=== PATIENT | female | born 1985 | race American Indian/Alaskan Native ===

== ENCOUNTER 2016-11-30 22:14 | Emergency (ER) | payer SELFPAY ==
[2016-11-30 23:26] LABS: Basophils % (Auto) 0.4 % (0.0-1.8); Eosinophils % (Auto) 0.2 % (0.0-4.3); Hematocrit 39.3 % (30.3-42.9); Hemoglobin 12.8 gm/dl (10.1-14.3); Mean Corpuscular HGB Conc 33 % (30-34); Mean Corpuscular Hemoglobin 28 pg (28-32); Mean Corpuscular Volume 85 fl (79-97); Platelet Count 205 K/mm3 (140-440); Red Blood Count 4.62 M/mm3 (3.65-5.03); Red Cell Distribution Width 13.5 % (13.2-15.2); White Blood Count 7.6 K/mm3 (4.5-11.0)
[2016-11-30 23:46] LABS: Anion Gap 16 mmol/L; BUN/Creatinine Ratio 12.22; Blood Urea Nitrogen 11 mg/dL (7-17); Calcium 8.8 mg/dL (8.4-10.2); Carbon Dioxide 24 mmol/L (22-30); Chloride 100.3 mmol/L (98-107); Glucose 121 mg/dL (65-100); Potassium 3.5 mmol/L (3.6-5.0); Sodium 137 mmol/L (137-145)
--- NOTE | 2016-12-01 00:38 | XRay Report ---
FINAL REPORT EXAM: XR CHEST ROUTINE 2V HISTORY: cough x 3 wks, preg test pend, send for report COMPARISON: None available. FINDINGS:: Frontal and lateral views of the chest obtained. Cardiac silhouette is within normal limits. No focal consolidation or effusion. No pneumothorax. Visualized bony thorax is grossly intact. Mild anterior eventration right hemidiaphragm. IMPRESSION:: No acute findings.
--- NOTE | 2016-12-01 03:39 | Emergency Department Report ---
- General Chief Complaint: Upper Respiratory Infection Stated Complaint: FLU SX Source: patient Mode of arrival: Ambulatory Limitations: No Limitations - History of Present Illness Initial Comments: 31-year-old female no past medical history presents with complaint of 3 weeks of cough slightly productive bodyaches intermittent fevers and chills. Patient states she has had mild chest pain secondary to cough. She denies any history of DVT or PE not on control MD Complaint: fever, cough, rhinorrhea - Related Data Previous Rx's Medication Instructions Recorded Last Taken Type ALBUTEROL Inhaler [ProAir HFA 1 puff IH Q4H PRN #1 inha 12/01/16 Unknown Rx Inhaler] Clarithromycin [Biaxin] 250 mg PO Q12H #14 tablet 12/01/16 Unknown Rx Famotidine [Pepcid] 20 mg PO BID #30 tablet 12/01/16 Unknown Rx Loratadine [Claritin] 10 mg PO DAILY #30 tablet 12/01/16 Unknown Rx Naproxen [Naprosyn TAB] 500 mg PO BID PRN #30 tablet 12/01/16 Unknown Rx Phenylephrine/Dm/Acetaminop/GG 266 ml PO Q4H PRN #1 liquid 12/01/16 Unknown Rx [Mucinex Aoqe-Gnx-Yhbcvrzuzz Lq] Allergies Allergy/AdvReac Type Severity Reaction Status Date / Time No Known Allergies Allergy Verified 11/30/16 22:50 ED Review of Systems ROS: Stated complaint: FLU SX Other details as noted in HPI Constitutional: malaise. denies: chills, fever Eyes: denies: eye pain, eye discharge, vision change ENT: denies: ear pain, throat pain Respiratory: cough. denies: shortness of breath, wheezing Cardiovascular: denies: chest pain, palpitations Endocrine: no symptoms reported Gastrointestinal: denies: abdominal pain, nausea, diarrhea Genitourinary: denies: urgency, dysuria, discharge Musculoskeletal: denies: back pain, joint swelling, arthralgia Skin: denies: rash, lesions Neurological: denies: headache, weakness, paresthesias Psychiatric: denies: anxiety, depression Hematological/Lymphatic: denies: easy bleeding, easy bruising ED Past Medical Hx - Past Medical History Previous Medical History?: No - Surgical History Past Surgical History?: No - Social History Smoking Status: Never Smoker Substance Use Type: Alcohol - Medications Home Medications: Home Medications Medication Instructions Recorded Confirmed Last Taken Type ALBUTEROL Inhaler [ProAir HFA 1 puff IH Q4H PRN #1 inha 12/01/16 Unknown Rx Inhaler] Clarithromycin [Biaxin] 250 mg PO Q12H #14 tablet 12/01/16 Unknown Rx Famotidine [Pepcid] 20 mg PO BID #30 tablet 12/01/16 Unknown Rx Loratadine [Claritin] 10 mg PO DAILY #30 tablet 12/01/16 Unknown Rx Naproxen [Naprosyn TAB] 500 mg PO BID PRN #30 tablet 12/01/16 Unknown Rx Phenylephrine/Dm/Acetaminop/GG 266 ml PO Q4H PRN #1 liquid 12/01/16 Unknown Rx [Mucinex Ovcf-Jqu-Dajkepxnqk Lq] ED Physical Exam - General Limitations: No Limitations General appearance: alert, in no apparent distress - Head Head exam: Present: atraumatic, normocephalic - Eye Eye exam: Present: normal appearance, PERRL, EOMI - ENT ENT exam: Present: normal exam, mucous membranes moist - Neck Neck exam: Present: normal inspection - Respiratory Respiratory exam: Present: normal lung sounds bilaterally. Absent: respiratory distress - Cardiovascular Cardiovascular Exam: Present: regular rate, normal rhythm. Absent: systolic murmur, diastolic murmur, rubs, gallop - GI/Abdominal GI/Abdominal exam: Present: soft, normal bowel sounds - Extremities Exam Extremities exam: Present: normal inspection - Back Exam Back exam: Present: normal inspection - Neurological Exam Neurological exam: Present: alert, oriented X3 - Psychiatric Psychiatric exam: Present: normal affect, normal mood - Skin Skin exam: Present: warm, dry, intact, normal color. Absent: rash ED Course Vital Signs 11/30/16 23:04 Temperature 99.1 F Pulse Rate 99 H Respiratory 18 Rate Blood Pressure 125/83 [Right] O2 Sat by Pulse 100 Oximetry ED Medical Decision Making - Lab Data Result diagrams: 11/30/16 23:06 11/30/16 23:06 - Medical Decision Making A/P: Bronchitis 1-clarithromycin, Motrin, albuterol, Claritin 2-follow up with primary doctor 3- HEART Score 0, PERC Rule Negative 4-chest x-ray and flu swab negative, labs and EKG WNL Critical care attestation.: If time is entered above; I have spent that time in minutes in the direct care of this critically ill patient, excluding procedure time. ED Disposition Clinical Impression: Bronchitis Disposition: DISCHARGED TO HOME OR SELFCARE Is pt being admited?: No Does the pt Need Aspirin: No Condition: Stable Instructions: Acute Bronchitis (ED) Prescriptions: ALBUTEROL Inhaler [ProAir HFA Inhaler] 1 puff IH Q4H PRN #1 inha PRN Reason: Cough Clarithromycin [Biaxin] 250 mg PO Q12H #14 tablet Famotidine [Pepcid] 20 mg PO BID #30 tablet Loratadine [Claritin] 10 mg PO DAILY #30 tablet Naproxen [Naprosyn TAB] 500 mg PO BID PRN #30 tablet PRN Reason: Fever Phenylephrine/Dm/Acetaminop/GG [Mucinex Eauk-Wxv-Smvhniwrlo Lq] 266 ml PO Q4H PRN #1 liquid PRN Reason: Cough Referrals: [facility] [Outside] - 3-5 Days [facility] [Outside] - 3-5 Days Forms: Work/School Release Form(ED) Time of Disposition: 05:06
[2016-12-01 04:14] LABS: Creatine Kinase 192 units/L (30-135)
[2016-12-01 05:09] VITALS: BP 121/65
== END 2016-12-01 05:19 | disposition home or self-care (01) ==
LOC: ED 22:14
DX: J40 Bronchitis, not specified as acute or chronic (principal)
CPT/HCPCS: 36415; 71020; 80048; 82550; 82805; 84484; 84703; 85025; 87400; 93005; 93010; 99284